=== PATIENT | male | born 1990 | race Native Hawaiian/Other Pacific Islander ===

== ENCOUNTER 2016-11-18 23:20 | Inpatient (IN) | payer OTHER ==
--- NOTE | 2016-11-19 00:25 | ED PDOC ---
Arrival/HPI <Christopher Harris - Last Filed: 11/19/16 01:39> - History of Present Illness Time/Duration: Prior to Arrival Symptom Onset: Gradual Symptom Course: Worsening <LACEY DE LEÓN - Last Filed: 11/19/16 05:28> - General Chief Complaint: Abdominal Pain Time Seen by Provider: 11/18/16 23:56 - History of Present Illness Narrative History of Present Illness (Text): Patient is a 26 year old male with PMH hemorrhoids and exercise induced asthma who presents to [facility] on 11/18/16 with complaints of abdominal pain associated with bloody stools, nausea, shortness of breath, and generalized weakness. Patient states that his symptoms started two months ago. At the time his symptoms first developed, patient states he was socially drinking often and decided to stop once symptoms started. Patient states that despite refraining from alcohol, his symptoms continued to progress. He states for the past two months he experiences abdominal pain throughout the day which induces him to have bowel movements around 6 times a day, with most BMs containing blood, describing the toilet bowl as bright red after each BM. Patient notes that his bloody BMs are exacerbated when consuming dairy and spicy food. Patient denies diarrhea and constipation, stating that his bowel movements tend to be soft. He also noticed that as time progressed, he becomes increasingly short of breath at shorter distances. He admits to weakness, and states that he is becoming pale as well. Last bowel movement was 2 hours prior to being admitted, BM contained blood. Patient denies headache, chest pain, headache, vomiting, denies recent intl travel. 11/19/16 00:25 11/19/16 00:42 11/19/16 03:31 (LACEY DE LEÓN) Past Medical History <Christopher Harris - Last Filed: 11/19/16 01:39> - Provider Review Nursing Documentation Reviewed: Yes - Travel History Have you recently traveled outside [place] w/in the past 3 mons?: No - Infectious Disease Hx of Infectious Diseases: None - Cardiac Hx Cardiac Disorders: No Hx Angina: No Hx Atrial Fibrillation: No Hx Coronary Artery Disease: No Hx Cardiac Arrhythmia: No Hx Circulatory Problems: No Hx Congestive Heart Failure: No Hx MA: No Hx Heart Murmur: No Hx Heart Transplant: No Hx Hyperlipemia: No Hx Hypertension: No Hx Hypotension: No Hx Internal Defibrillator: No Hx Mitral Valve Prolapse: No Hx Pacemaker: No Hx Peripheral Edema: No Hx Peripheral Vascular Disease: No - Pulmonary Hx Respiratory Disorders: No Hx Asthma: Yes Hx Bronchitis: No Hx Chronic Obstructive Pulmonary Disease (COPD): No Hx Emphysema: No Hx Lung Cancer: No Hx Pneumonia: No Hx Pulmonary Edema: No Hx Pulmonary Embolism: No Hx Respiratory Aspiration: No Hx Respiratory Tract Infection: No Hx Sleep Apnea: No Hx Tuberculosis: No - Neurological Hx Neurological Disorder: No Hx Alzheimer's Disease: No HX Cerebrovascular Accident: No Hx Dementia: No Hx Dizziness: No Hx Headaches: No Hx Meningitis: No Hx Migraine: No Hx Multiple Sclerosis: No Hx Paralysis: No Hx Parkinson's Disease: No Hx Seizures: No Hx Syncope: No Hx Transient Ischemic Attacks (TIA): No Hx Vertigo: No - HEENT Hx HEENT Disorder: No Hx Blind: No Hx Cataracts: No Hx Deafness: No Hx Difficulty Chewing: No Hx Epistaxis: No Hx Glaucoma: No Hx Macular Degeneration: No Hx Sinusitis: No - Renal Hx Renal Disorder: No Hx Dialysis: No Hx Kidney Stones: No Hx Neurogenic Bladder: No Hx Pyelonephritis: No Hx Renal Cancer: No Hx Renal Failure: No - Endocrine/Metabolic Hx Endocrine Disorders: No Hx Adrenal Cancer: No Hx Diabetes Insipidus: No Hx Diabetes Mellitus Type 1: No Hx Diabetes Mellitus Type 2: No Hx Hyperthyroidism: No Hx Hypothyroidism: No Hx Systemic Lupus Erythematosus: No - Hematological/Oncological Hx Blood Disorders: No Hx AIDS: No Hx Anemia: No Hx Blood Transfusions: No Hx Blood Transfusion Reaction: No Hx Bruising: No Hx Cancer: No Hx Chemotherapy: No Hx Cirrhosis: No Hx Gum Bleeding: No Hx Hemophilia: No Hx Hepatitis A: No Hx Hepatitis B: No Hx Hepatitis C: No Hx HIV: No Hx Leukemia: No Hx Lymphoma: No Hx Metastasis: No Hx Shingles: No Hx Sickle Cell Trait: No Hx Sickle Cell Disease: No Hx Unexplained Bleeding: No Hx von Willebrand's Disease: No - Integumentary Hx Dermatological Disorder: No Hx Basal Cell Carcinoma: No Hx Martinez: No Hx Cellulitis: No Hx Eczema: No Hx Melanoma: No Hx Psoriasis: No Hx Squamous Cell Carcinoma: No - Musculoskeletal/Rheumatological Hx Musculoskeletal Disorders: No Hx Arthritis: No Hx Back Pain: No Hx Degenerative Joint Disease: No Hx Falls: No Hx Fractures: No Hx Gout: No Hx Herniated Disk: No Hx Myasthenia Gravis: No Hx Osteoarthritis: No Hx Osteomyelitis: No Hx Osteoporosis: No Hx Rhabdomyolysis: No Hx Rheumatoid Arthritis: No Hx Spinal Stenosis: No Hx Unsteady Gait: No - Gastrointestinal Hx Gastrointestinal Disorders: No Hx Bowel Surgery: No Hx Clostridium Difficile: No Hx Colitis: No Hx Colostomy: No Hx Constipation: No Hx Crohn's Disease: No Hx Diarrhea: No Hx Diverticulitis: No Hx Esophageal Varices: No Hx Fatty Liver Disease: No Hx Gall Bladder Disease: No Hx Gastritis: No Hx Gastroesophageal Reflux: No Hx Gastrointestinal Ulcer: No Hx Hemorrhoids: No Hx Ileostomy: No Hx Irritable Bowel: No Hx Liver Failure: No Hx Nausea: No Hx Pancreatitis: No HX Swallowing Problems: No Hx Vomiting: No - Genitourinary/Gynecological Hx Genitourinary Disorders: No Hx Bladder Cancer: No Hx Bladder Stone: No Hx Cervical Cancer: No Hx Hematuria: No Hx Incontinence: No Hx Ovarian Cancer: No Hx Postmenopausal Bleeding: No Hx Prostate Cancer: No Hx Prostate Problems: No Hx Reproductive Disorders: No Hx Sexually Transmitted Diseases: No Hx Uterine Cancer: No Hx Urinary Tract Infection: No - Psychiatric Hx Psychophysiologic Disorder: No Hx Anxiety: No Hx Bipolar Disorder: No Hx Depression: No Hx Emotional Abuse: No Hx Hallucinations: No Hx Panic Disorder: No Hx Paranoia: No Hx Post Traumatic Stress Disorder: No Hx Psychosis: No Hx Physical Abuse: No Hx Schizophrenia: No Hx Sexual Abuse: No Hx Substance Use: No - Past Surgical History Past Surgical History: No Previous - Surgical History Hx Abdominal Aortic Aneurysm Repair: No Hx Amputation: No Hx Angiogram: No Hx Angioplasty: No Hx Appendectomy: No Hx Arteriovenous Shunt: No Hx Arthroscopy: No Hx Bile Duct Stent: No Hx Breast Biopsy: No Hx Cataract Extraction: No Hx Cardiac Catheterization: No Hx Carotid Endarterectomy: No Hx Section: No Hx Cholecystectomy: No Hx Coronary Artery Bypass Graft: No Hx Coronary Stent: No Hx Dilation and Curettage: No Hx Eye Surgery: No Hx Femoral-Popliteal Bypass Graft: No Hx Gastric Bypass Surgery: No Hx Hysterectomy: No Hx Inguinal Hernia Repair: No Hx Joint Replacement: No Hx Kidney Transplant: No Hx Liver Transplant: No Hx Mastectomy: No Hx Musculoskeletal Surgery: No Hx Open Heart Surgery: No Hx Open Reduction Internal Fixation: No Hx Orthopedic Surgery: No Hx Parathyroidectomy: No Hx Penile Implant: No Hx Pulmonary Surgery: No Hx Splenectomy: No Hx Thyroidectomy: No Hx Tonsillectomy: No Hx Tubal Ligation: No Hx Valve Replacement: No Hx Vascular Surgery: No Hx Vascular Access Device: No - Anesthesia Hx Anesthesia: No Hx Anesthesia Reactions: No Hx Malignant Hyperthermia: No Has any member of the family had a problem with anesthesia?: No - Suicidal Assessment Suicidal Thoughts: No Plan: No Suicide Risk Precautions: None Feels Threatened In Home Enviroment: No Feels Threatened In a Relationship: No <LACEY DE LEÓN - Last Filed: 11/19/16 05:28> - Patient History Narrative Patient History: Patient admits to bleeding in the past due to hemorrhoids; within past 5 years. (LACEY DE LEÓN) Family/Social History Family/Social History: No Known Family HX Smoking Status: Never Smoked Hx Alcohol Use: No Hx Substance Use: No <LACEY DE LEÓN - Last Filed: 11/19/16 05:28> Allergies/Home Meds <Christopher Harris - Last Filed: 11/19/16 01:39> <LACEY DE LEÓN - Last Filed: 11/19/16 05:28> Allergies/Adverse Reactions: Allergies No Known Allergies Allergy (Verified 11/18/16 23:40) Home Medications: Home Meds Medication Instructions Recorded Confirmed No Known Home Med 11/18/16 11/18/16 Review of Systems - Review of Systems Systems not reviewed;Unavailable: Acuity of Condition Constitutional: Normal Eyes: Normal ENT: Normal Respiratory: Normal Cardiovascular: Normal Gastrointestinal: Normal Genitourinary Male: Normal Musculoskeletal: Normal Skin: Normal Neurological: Normal Endocrine: Normal Hemo/Lymphatic: Normal Psychiatric: Normal <LACEY DE LEÓN - Last Filed: 11/19/16 05:28> Physical Exam Vital Signs Reviewed: Yes Temperature: Afebrile Blood Pressure: Normal Pulse: Regular Respiratory Rate: Normal Appearance: Positive for: Ill-Appearing Pain Distress: None Mental Status: Positive for: Alert and Oriented X 3 - Systems Exam Head: Present: Atraumatic, Normocephalic Extroacular Muscles: Present: EOMI Conjunctiva: Present: Other (pallor) Mouth: Present: Moist Mucous Membranes, Other (pale oral mucosa) Neck: Present: Normal Range of Motion Cardiovascular: Present: Regular Rate and Rhythm, Normal S1, S2 Abdomen: Present: Normal Bowel Sounds. No: Tenderness, Distention <LACEY DE LEÓN - Last Filed: 11/19/16 05:28> Vital Signs Temp Pulse Resp BP Pulse Ox 11/19/16 02:40 99.0 F 97 H 18 133/67 100 11/18/16 23:32 98.1 F 110 H 20 146/78 100 Medical Decision Making - Lab Interpretations I have reviewed the lab results: Yes <Christopher Harris - Last Filed: 11/19/16 01:39> <LACEY DE LEÓN - Last Filed: 11/19/16 05:28> ED Course and Treatment: Impression: Pt seen and evaluated with pesticide use medical coordinator. Pt, whose past medical history includes hemorrhoids and asthma, presented for bright red hematochezia, nausea, generalized weakness, and shortness of breath gradually woresening over 2 months. Pt also reports associated abdominal pain. Aware and agree with HPI, clinical findings, plan, and management. Plan: -- CT Abdomen and Pelvis w/o contrast -- EKG -- Chest X-ray/XR Abdomen -- Labs, blood type and screen -- Reassess and disposition Progress Notes: 11/19/16 01:14 Labs reviewed, hemoglobin: 5.8, hemtocrit 22.2. Will transfuse pt. 11/19/16 01:[address] Maldonado, who is aware and agrees with plan. Accepts pt in to his service. (Christopher Harris) [age] year old patient with c/o abdominal pain, hematochezia, shortness of breath , weakness found to be anemic -H&H 5.8, 22.2; typed and crossed, transfused 2 units PRBCs -Will admit to medical floor for further evaluation -EKG ordered; sinus tachycardia -NPO 11/19/16 01:27 (LACEY DE LEÓN) - Lab Interpretations Lab Results: 11/19/16 00:16 11/19/16 00:16 Lab Results 11/19/16 01:45: Blood Type Confirm AB POSITIVE 11/19/16 00:16: Retic Count 2.09 H 11/19/16 00:16: Blood Type AB POSITIVE, Antibody Screen Negative, Crossmatch See Detail, BBK History Checked No verified bt 11/19/16 00:16: PT 10.1, INR 0.94, APTT 24.9 11/19/16 00:16: Sodium 138, Potassium 3.7, Chloride 102, Carbon Dioxide 26, Anion Gap 14, BUN 7, Creatinine 0.8, Est GFR ( Amer) > 60, Est GFR (Non- Af Amer) > 60, Random Glucose 188 H, Calcium 8.8, Ferritin Pending, Total Bilirubin 0.6, AST 27, ALT 23, Alkaline Phosphatase 52, Total Protein 7.2, Albumin 3.9, Globulin 3.4, Albumin/Globulin Ratio 1.1 11/19/16 00:16: WBC 6.9, RBC 3.61, Hgb 5.8 L*, Hct 22.2 L, MCV 61.5 L, MCH 16.1 L, MCHC 26.1 L, RDW 17.6 H, Plt Count 464 H, MPV 8.5, Gran % 60.3, Lymph % (Auto ) 26.8, Banks % (Auto) 9.4 H, Eos % (Auto) 2.9, Baso % (Auto) 0.6, Gran # 4.19, Lymph # 1.9, Banks # 0.7 H, Eos # 0.2, Baso # 0.04 - RAD Interpretation Radiology Orders: 11/19/16 00:00 CXR [CHEST PORTABLE] [RAD] Stat 11/19/16 00:03 ABDOMEN (FLAT PLATE) 1VIEW [RAD] Stat 11/19/16 01:19 ABD & PELVIS W/O PO OR IV CONT [CT] Stat - Medication Orders Current Medication Orders: Acetaminophen (Tylenol 325mg Tab) 650 mg PO Q6H PRN PRN Reason: Fever >100.4 F Famotidine (Pepcid) 20 mg IVP Q12 SARAH Sodium Chloride (Sodium Chloride 0.9%) 1,000 mls @ 100 mls/hr IV .Q10H STA Stop: 11/19/16 11:55 Last Admin: 11/19/16 02:04 Dose: 100 mls/hr Pantoprazole Sodium (Protonix 40mg Ivpb) 40 mg in 100 mls @ 20 mls/hr IVPB .Q5H SARAH Last Admin: 11/19/16 04:49 Dose: 20 mls/hr Discontinued Medications Oxycodone/Acetaminophen (Percocet 5/325 Mg Tab) 1 tab PO Q4H PRN PRN Reason: Pain, moderate (4-7) Stop: 11/22/16 01:57 Pantoprazole Sodium (Protonix Inj) 40 mg IVP STAT STA Stop: 11/19/16 01:02 Last Admin: 11/19/16 01:34 Dose: 40 mg Disposition/Present on Arrival <Christopher Harris - Last Filed: 11/19/16 01:39> - Present on Arrival Any Indicators Present on Arrival: No History of DVT/PE: No History of Uncontrolled Diabetes: No Urinary Catheter: No History of Decub. Ulcer: No History Surgical Site Infection Following: None - Disposition Have Diagnosis and Disposition been Completed?: Yes Disposition Time: 02:00 Patient Plan: Admission <LACEY DE LEÓN - Last Filed: 11/19/16 05:28> - Disposition Diagnosis: Gastrointestinal bleed Disposition: HOSPITALIZED Patient Problems: Current Active Problems Problem Status Onset Gastrointestinal bleed Acute Condition: CRITICAL
[2016-11-19 00:52] LABS: BASO # 0.04 K/mm3 (0.0-2.0); BASO % 0.6 % (0.0-3.0); EOS # 0.2 (0.0-0.7); EOS % 2.9 % (1.5-5.0); GRAN # 4.19 (1.4-6.5); GRAN % 60.3 % (50.0-68.0); LYMPH # 1.9 (1.2-3.4); LYMPH % 26.8 % (22.0-35.0); MEAN CELL VOLUME 61.5 fl (80.0-105.0); MEAN CORPUSCULAR HEMOGLOBIN 16.1 pg (25.0-35.0); MEAN CORPUSCULAR HGB CONC 26.1 g/dl (31.0-37.0); MEAN PLATELET VOLUME 8.5 fl (7.0-11.0); MONO # 0.7 (0.1-0.6); MONO % 9.4 % (1.0-6.0); WHITE BLOOD COUNT 6.9 10^3/ul (4.5-11.0)
[2016-11-19 00:55] LABS: HEMATOCRIT 22.2 % (42.0-52.0)
[2016-11-19 00:58] LABS: INR 0.94 (0.93-1.08); PARTIAL THROMBOPLASTIN TIME 24.9 Seconds (23.7-30.8)
[2016-11-19 01:02] LABS: ALB/GLOB RATIO 1.1 (1.1-1.8); ALKALINE PHOSPHATASE 52 U/L (38-133); ALT/SGPT 23 U/L (7-56); AST/SGOT 27 U/L (15-59); BILIRUBIN,TOTAL 0.6 mg/dL (0.2-1.3); BLOOD UREA NITROGEN 7 mg/dL (7-21); CALCIUM 8.8 mg/dL (8.4-10.5); CARBON DIOXIDE 26 mmol/L (21-33); CHLORIDE 102 mmol/L (98-107); GFR AFRICAN-AMERICAN > 60; GLUCOSE,RANDOM 188 mg/dL (70-110); POTASSIUM 3.7 mmol/L (3.6-5.0); SODIUM 138 mmol/L (132-148); TOTAL PROTEIN 7.2 g/dL (5.8-8.3)
[2016-11-19 01:29] LABS: RED CELL DISTRIBUTION WIDTH 17.6 % (11.5-14.5)
[2016-11-19] MEDS ORDERED: Sodium Chloride 0.9% 1,000 ML IV STA (01:56)
[2016-11-19] MEDS ORDERED: Oxycodone/Acetaminophen 5/325 mg Tab PO PRN (01:56)
--- NOTE | 2016-11-19 02:09 | CT ---
EXAM: CT Abdomen and Pelvis Without Intravenous Contrast CLINICAL HISTORY: 26 years old, male; Pain; Abdominal pain; Generalized; Additional info: Abd pain TECHNIQUE: Axial computed tomography images of the abdomen and pelvis without intravenous contrast. All CT scans at this facility use one or more dose reduction techniques, viz.: automated exposure control; ma/kV adjustment per patient size (including targeted exams where dose is matched to indication; i.e. head); or iterative reconstruction technique. Coronal and sagittal reformatted images were created and reviewed. COMPARISON: No relevant prior studies available. FINDINGS: Limitations: Lack of intravenous contrast. Lower thorax: No acute findings. ABDOMEN: Liver: Fatty infiltration. Gallbladder and bile ducts: No calcified stones. No ductal dilation. Pancreas: Unremarkable. No ductal dilation. Spleen: No splenomegaly. Adrenals: No mass. Kidneys and ureters: No renal calculi. No hydronephrosis. Stomach and bowel: Mild fatty infiltration wall of distal small bowel loops. Mild mural thickening of descending, sigmoid colon. No associated inflammatory stranding. No obstruction. Appendix: Normal caliber. No inflammation. PELVIS: Bladder: Unremarkable. No stones. Reproductive: Unremarkable as visualized. ABDOMEN and PELVIS: Intraperitoneal space: No significant fluid collection. No free air. Bones/joints: No acute fracture. Soft tissues: Unremarkable. Vasculature: Unremarkable. No aneurysm. Lymph nodes: Several subcentimeter short axis mesenteric lymph nodes, nonspecific. IMPRESSION: 1. Probable mild colitis. Consider inflammatory or infectious etiologies. 2. Incidental/non-acute findings are described above.
--- NOTE | 2016-11-19 04:33 | CP.PCM.PN ---
Subjective - Date & Time of Evaluation Date of Evaluation: 11/19/16 Time of Evaluation: 04:31 - Subjective Subjective: Patient was seen at bedside. discussed with and nurse Kenisha. Spoke to as per whom he did not speak to nor . Patient is hemodynamically stable. This 26 year old obese person was admitted with 2 months history of black stools. Has PMH of obesity, alcohol abuse, ashtma, hemorrhoids. Objective - Vital Signs/Intake and Output Vital Signs (last 24 hours): Temp Pulse Resp BP Pulse Ox 97.8 F 98 H 20 114/68 100 11/19/16 03:55 11/19/16 04:10 11/19/16 03:55 11/19/16 04:10 11/19/16 02:40 Intake and Output: 11/18/16 11/19/16 18:59 06:59 Intake Total 0 Balance 0 - Medications Medications: Current Medications Acetaminophen (Tylenol 325mg Tab) 650 mg PO Q6H PRN PRN Reason: Fever >100.4 F Famotidine (Pepcid) 20 mg IVP Q12 SARAH Sodium Chloride (Sodium Chloride 0.9%) 1,000 mls @ 100 mls/hr IV .Q10H STA Stop: 11/19/16 11:55 Last Admin: 11/19/16 02:04 Dose: 100 mls/hr Pantoprazole Sodium (Protonix 40mg Ivpb) 40 mg in 100 mls @ 20 mls/hr IVPB .Q5H SARAH - Labs Labs: PT 10.1 Seconds (9.9-11.8) 11/19/16 00:16 INR 0.94 (0.93-1.08) 11/19/16 00:16 APTT 24.9 Seconds (23.7-30.8) 11/19/16 00:16 - Constitutional Appears: Well, No Acute Distress - Head Exam Head Exam: ATRAUMATIC, NORMAL INSPECTION, NORMOCEPHALIC - Eye Exam Eye Exam: Normal appearance - ENT Exam ENT Exam: Normal External Ear Exam - Neck Exam Neck Exam: Normal Inspection - Respiratory Exam Respiratory Exam: NORMAL BREATHING PATTERN - Cardiovascular Exam Cardiovascular Exam: absent: JVD - GI/Abdominal Exam GI & Abdominal Exam: absent: Distended - Rectal Exam Rectal Exam: Deferred - Exam Additional comments: Deferred. - Extremities Exam Extremities Exam: Normal Inspection - Back Exam Back Exam: NORMAL INSPECTION - Neurological Exam Neurological Exam: Alert, Oriented x3 - Psychiatric Exam Psychiatric exam: Normal Affect, Normal Mood - Skin Skin Exam: Pallor Assessment and Plan - Assessment and Plan (Free Text) Assessment: GI bleeding. Obesity. Asthma. Alcohol abuse. Hx hemorrhoids. Plan: If continue to have rectal bleeding, and unstable will get heating and cooling technician evaluation to transfer to ICU. 05:37 Pt seen , weakness, fatigue, epigastric, pain. for sigmoidoscopy, EGD this am by .
[2016-11-19] MEDS: Pantoprazole 40mg/100ml IVPB 40 MG/100 ML BAG IVPB SCH ×4 (04:49→20:50)
[2016-11-19 05:06] LABS: RETIC% 2.09 % (0.5-1.5)
[2016-11-19 06:11] LABS: IRON < 10 ug/dL (45-180)
[2016-11-19] MEDS ORDERED: Sodium Chloride 0.45% 1,000 ML IV SCH (08:00)
--- NOTE | 2016-11-19 08:08 | CON ---
DATE: 11/19/2016 HISTORY OF PRESENT ILLNESS: I saw the patient this morning. He is a 26-year-old male admitted with complaints of abdominal pain with diarrhea extending back over 2 months. He indicated that the initial episodes started after 1 week of constant partying, excessive drinking about month and a half to 2 months ago. He indicates that pain is located primarily in the epigastric area, left upper quadrant, may occur after food. Diarrhea usually occurs within minutes after intake of either liquids or solids. May have up to 10 to 12 bowel movements a day, most have some degree of oil. Bowel movements he described as dark with some bright red blood. He has noted brown stool as well with blood mixed in. There has been nausea at times. Main complaint now is nausea with shortness of breath, generalized weakness. He has not had any endoscopic evaluation for this. PHYSICAL EXAMINATION: VITAL SIGNS: I reviewed this patient's vital signs. HEENT EXAM: Noncontributory except for dry mouth. LUNGS: Clear to auscultation. HEART: Regular rhythm. ABDOMEN: Soft. Mild tenderness in the epigastric area, left upper quadrant. Remainder of the exam in the area of the right lower, right upper quadrant, the left paraumbilical, periumbilical as well as the deep left lower quadrant is noncontributory. LABORATORY DATA: Indicate H and H of 5.0/22 and platelet count of 464. His INR is within normal limits. Chemistry is noncontributory except for mildly elevated glucose. CAT scan images were reviewed which indicates substantial amount of hepatic steatosis; biliary tract, noncontributory. There was some thickening noted in the wall of the descending as well as sigmoid colon, but no gross evidence of diverticulitis. ASSESSMENT: This is a 26-year-old male admitted with complaints of abdominal pain, diarrhea, nausea, fatigue, weakness, going on for 2 months, presents with severe anemia. I reviewed the risks, benefits, alternatives of possible upper endoscopy and flexible sigmoidoscopy with this patient. Due to his symptoms of nausea as well as abdominal pain and diarrhea, we will elect to perform an endoscopy and only a flexible sigmoidoscopy today. obviously he will need a colonoscopy on the outpatient basis. The procedure will be scheduled for sometime later on this morning, 11:30 or after. At the current time point maintain the patient on pantoprazole infusion and he is currently being transfused. I reviewed the procedure with the patient at the bedside, will obtain consent later. Issue discussed with Dr Maldonado. Jaycob Gay DO, PhD СВЕТЛАНА
--- NOTE | 2016-11-19 08:50 | RAD ---
HISTORY: abdominal pain COMPARISON: No prior. FINDINGS: BOWEL: Normal. No obstruction. No free air. BONES: Normal. OTHER FINDINGS: None. IMPRESSION: No active disease.
--- NOTE | 2016-11-19 08:51 | RAD ---
HISTORY: Wheezing, shortness of breath COMPARISON: No prior. FINDINGS: LUNGS: No active pulmonary disease. PLEURA: No significant pleural effusion identified, no pneumothorax apparent. CARDIOVASCULAR: Normal. OSSEOUS STRUCTURES: No significant abnormalities. VISUALIZED UPPER ABDOMEN: Normal. OTHER FINDINGS: None. IMPRESSION: No active disease.
[2016-11-19] MEDS: metroNIDAZOLE IV 500 mg/100 ml 500 MG/100 ML BAG IVPB SCH ×3 (09:33→21:03)
--- NOTE | 2016-11-19 09:44 | CARD ---
APPROVED REPORT EKG Measurement Heart [id number] IA [id number] <Conclusion> Sinus tachycardia Minimal voltage criteria for LVH, may be normal variant Normal ECG for age
[2016-11-19] MEDS ORDERED: Ciprofloxacin 400mg/200ml D5W 400 MG/200 ML BAG IVPB SCH (10:00)
[2016-11-19 11:43] LABS: HEMATOCRIT 25.9 % (42.0-52.0)
[2016-11-19 11:45] LABS: ALB/GLOB RATIO 1.2 (1.1-1.8); ALKALINE PHOSPHATASE 56 U/L (38-133); ALT/SGPT 29 U/L (7-56); AST/SGOT 36 U/L (15-59); BILIRUBIN,TOTAL 1.5 mg/dL (0.2-1.3); BLOOD UREA NITROGEN 5 mg/dL (7-21); CALCIUM 8.7 mg/dL (8.4-10.5); CARBON DIOXIDE 24 mmol/L (21-33); CHLORIDE 105 mmol/L (98-107); GFR AFRICAN-AMERICAN > 60; GLUCOSE,RANDOM 95 mg/dL (70-110); SODIUM 139 mmol/L (132-148); TOTAL PROTEIN 7.1 g/dL (5.8-8.3)
[2016-11-19] MEDS ORDERED: Propofol 10 mg/ml Inj (20 ML) ONE (12:03)
[2016-11-19] MEDS ORDERED: Midazolam 2 MG/2 ML VIAL ONE (12:04)
[2016-11-19] MEDS: Sodium Chloride 0.9% 1,000 ML IV SCH (15:05)
[2016-11-19 18:06] LABS: HEMATOCRIT 27.2 % (42.0-52.0)
--- NOTE | 2016-11-19 18:24 | HP ---
HISTORY OF PRESENT ILLNESS: I saw the patient this morning in his bed, he was resting comfortably, and he has got IV, transfusion is being given to him. He is a 26-year-old man who presents with a 2-month history of black stools, some nauseousness, some shortness of breath, generalized weakness. He is a social drinker. He stopped drinking recently, but he is still having the issues of black stools. He also had bright red blood stools too. He has a history of exercise-induced asthma, hemorrhoids, and symptoms got worse, and he ended up in the emergency room. He has asthma and hemorrhoids. No surgeries. He does have a questionable history of bleeding from hemorrhoids in the past 5 years. FAMILY HISTORY: No known family history. SOCIAL HISTORY: Never smoked, he does drink alcohol, but he stopped about 3 weeks ago and no substance abuse. MEDICATIONS: He takes no medications. ALLERGIES: NO ALLERGIES TO ANY MEDICATIONS. REVIEW OF SYSTEMS: No acute vision changes or hearing changes, no sore throat, or neck pain. No chest pain. He is breathing well right now at rest but does gets shortness of breath too much or gets up too fast. He gets headaches from time to time. No abdominal pain at this time. He does get abdominal cramping. He has had blood in stool. He had black stools. He does have hemorrhoids. His legs are okay. Not nervous, not anxious, not sweating. PHYSICAL EXAMINATION: VITAL SIGNS: He has 99 temp, 110 pulse, 20 respiratory rate, 146/70 blood pressure, 100% O2 sat on room air. GENERAL: He is alert and oriented x3. He is comfortable in bed, little weak, ill-appearing a bit. HEENT: Head is atraumatic and normocephalic. Extraocular muscles are intact. Pupils are equal and reactive to light. Throat is moist. NECK: Supple. HEART: Regular rate. Normal S1 and S2. LUNGS: Decreased breath sounds, but clear to auscultation bilaterally. ABDOMEN: Soft, nontender. Positive bowel sounds. No guarding, no rebound. No CVA tenderness. He is a little bit obese. EXTREMITIES: No edema. SKIN: For the most part is intact. No ulcers or rashes are visualized. LYMPHATICS: Thyroid midline. No palpable or appreciable lymphadenopathy. He had a CAT scan of the abdomen and pelvis which showed probable mild colitis. LABORATORY DATA: He had lab work. He has a 138 sodium, potassium of 3.7, BUN 17, creatinine 0, GFR is greater than 60, sugar is high at 188, calcium is 8.8, iron level is less than 10, total iron binding capacity is quite high at 508. Total bili is 0.6, AST is 27, ALT is 23, alk phos is 52, total protein is 7.2, albumin is 3.9, globulin 3.4, INR is 0.94. White count 6.9 with hemoglobin 5.8, hematocrit 22.2, and platelets of 464. He will have a consult with GI. He will be on IV Protonix, IV Pepcid, IV Cipro, IV Flagyl, IV fluids. Check his labs tomorrow. He is getting transfused. He might need blood transfusions. His H and H is q. 6 hours pending. He is in a bit of trouble and also improved fast, and I will get to the bottom of this and help him. IMPRESSION: Acute anemia, gastrointestinal bleed, colitis, high blood sugar. Joby Maldonado DO СВЕТЛАНА
[2016-11-20] MEDS: Pantoprazole 40mg/100ml IVPB 40 MG/100 ML BAG IVPB SCH ×6 (02:10→20:03)
[2016-11-20] MEDS: Sodium Chloride 0.9% 1,000 ML IV SCH (02:50)
[2016-11-20] MEDS: metroNIDAZOLE IV 500 mg/100 ml 500 MG/100 ML BAG IVPB SCH ×3 (05:04→23:41)
[2016-11-20 07:07] LABS: HEMATOCRIT 28.9 % (42.0-52.0); MEAN CELL VOLUME 67.8 fl (80.0-105.0); MEAN CORPUSCULAR HEMOGLOBIN 19.5 pg (25.0-35.0); MEAN CORPUSCULAR HGB CONC 28.7 g/dl (31.0-37.0); MEAN PLATELET VOLUME 8.7 fl (7.0-11.0); RED CELL DISTRIBUTION WIDTH 22.7 % (11.5-14.5); WHITE BLOOD COUNT 4.8 10^3/ul (4.5-11.0)
[2016-11-20 07:25] LABS: ALB/GLOB RATIO 1.2 (1.1-1.8); ALKALINE PHOSPHATASE 52 U/L (38-126); ALT/SGPT 31 U/L (7-56); AST/SGOT 49 U/L (17-59); BILIRUBIN,TOTAL 1.5 mg/dL (0.2-1.3); BLOOD UREA NITROGEN 6 mg/dL (7-21); CALCIUM 8.8 mg/dL (8.4-10.5); CARBON DIOXIDE 26 mmol/L (21-33); CHLORIDE 106 mmol/L (98-107); GFR AFRICAN-AMERICAN > 60; GLUCOSE,RANDOM 101 mg/dL (70-110); POTASSIUM 4.1 mmol/L (3.6-5.0); SODIUM 142 mmol/L (132-148)
[2016-11-20] MEDS: Sodium Chloride 0.45% 1,000 ML IV SCH (09:13)
--- NOTE | 2016-11-20 10:18 | PN ---
DATE: SUBJECTIVE: I known Brant fairly well. He is comfortable now in bed. No more blood. He is hungry. He is on liquid diet. Tomorrow, he will go to soft. He is also not seeing anymore blood, which is good or dark stools. GI is appreciated. PHYSICAL EXAMINATION VITAL SIGNS: He has got 98.4 temperature, 85 pulse, 120/62 blood pressure, 20 respiratory rate, 99% O2 on room air. HEENT: Head is atraumatic, normocephalic. Throat is moist. NECK: Supple. HEART: Regular rate. LUNGS: Decreased breath sounds, but clear. ABDOMEN: Soft, moderately obese, nontender, positive bowel sounds. EXTREMITIES: No edema. MEDICATIONS: He is currently on iron, Flagyl, Pepcid, Protonix; IV fluids, they changed from 0.9 at 100 to 0.5 at 40. He is on Solu-Cortef 100 mg IV b.i.d. and Tylenol. He is off the Cipro. He is also going to get two more units of packed red blood cells today. LABORATORY DATA: He has 142 sodium, potassium 4.1, BUN of 6, creatinine 0.9. GFR is greater than 60. Sugar is down to 101, better, but he is on steroids, we will see what happens. Calcium 8.8. His iron is low, I will start him on iron. Total bilirubin is 1.5, AST is 49, ALT is 31, alkaline phosphatase is 32, total protein 7, albumin is 3.8, globulin 3.2. His INR was 0.94. His white count is 4.8, his hemoglobin after 4 units of blood went from 5.8 to 8.3. I will give him 2 more units of blood today. I would like him to get over 10. Hematocrit is 28.9, platelets of 408. ASSESSMENT AND PLAN: He is being seen by GI. He has an endoscopy, upper and lower flexible sigmoidoscopy. He has got ulcerative colitis, anemia, GI bleed. He had one high blood sugar and I would like to give him 2 more units of blood. Hopefully, tomorrow, if he does well and eats well tomorrow morning, we can discharge him. Joby Maldonado DO [facility] # [id number]
--- NOTE | 2016-11-20 12:33 | PN ---
DATE: 11/20/2016 SUBJECTIVE: I examined Mr. Dean this morning. He is a 26-year-old [place] male admitted with complaints of 2 months' diarrhea, anemia, abdominal pain, and rectal bleeding. Endoscopic evaluation yesterday significant for antral erosions, hiatal hernia, esophagitis, but more significantly what appeared to be ulcerative colitis of the descending colon sigmoid involving the rectum as well. The patient was initiated on high dose IV steroids yesterday with good results. There is no nausea and no abdominal pain. No rectal bleeding or diarrhea. The patient tolerated the small volumes of clear liquid without difficulty yesterday. We suggest one more day of high dose IV steroids followed by outpatient therapy. At bedside this morning, the patient feels significantly improved, more energy, received another 2 units after coming back from endoscopy yesterday. PHYSICAL EXAMINATION VITAL SIGNS: The patient's vital signs were reviewed. HEENT: Noncontributory. LUNGS: Clear to auscultation. HEART: Regular rhythm. ABDOMEN: Soft, doughy, and no tenderness elicited. Note, there is no fullness noted in the area of the left paraumbilical and the left lower quadrant. LABORATORY DATA: As of yesterday 1800 hours last night indicated H and H with 7.6 and 27. We anticipate with the 2 units of blood, his hemoglobin should be up there in the range of 9 or so. His transfusion requirement should be sufficient at that level for him to recover. ASSESSMENT AND PLAN: This is a 26-year-old [place] male with a new diagnosis of segmental left-sided colitis involving the descending colon, sigmoid and rectum. The patient is currently on intravenous steroids and seems to be doing well. Plan of action would be give him another day of IV steroids. Today, I decreased to 100 mg b.i.d. which the patient will continue through tomorrow and subsequently if discharged, will be on a prednisone taper regimen, during which time, he will start oral mesalamine therapy for ulcerative colitis. Biopsy result is pending; however, diagnosis seems to be reasonable based on endoscopic appearance. At the patient's requests since he has done well on clear liquids, we will advance diet to full liquids today. Dr. Maldonado will evaluate the patient today. Note that, I discussed this case with Dr. Joel borjas yesterday as well as the patient's mother. Jaycob Gay DO, MTDKyle
[2016-11-21] MEDS: Pantoprazole 40mg/100ml IVPB 40 MG/100 ML BAG IVPB SCH ×4 (01:49→11:07)
[2016-11-21 06:04] LABS: ALB/GLOB RATIO 1.1 (1.1-1.8); ALKALINE PHOSPHATASE 56 U/L (38-126); ALT/SGPT 31 U/L (7-56); AST/SGOT 40 U/L (17-59); BILIRUBIN,TOTAL 1.5 mg/dL (0.2-1.3); BLOOD UREA NITROGEN 9 mg/dL (7-21); CALCIUM 9.2 mg/dL (8.4-10.5); CARBON DIOXIDE 27 mmol/L (21-33); CHLORIDE 104 mmol/L (98-107); GFR AFRICAN-AMERICAN > 60; GLUCOSE,RANDOM 88 mg/dL (70-110); SODIUM 143 mmol/L (132-148); TOTAL PROTEIN 7.4 g/dL (5.8-8.3)
[2016-11-21 06:13] LABS: POTASSIUM 3.4 mmol/L (3.6-5.0)
[2016-11-21 06:19] LABS: HEMATOCRIT 34.3 % (42.0-52.0); MEAN CELL VOLUME 69.7 fl (80.0-105.0); MEAN CORPUSCULAR HEMOGLOBIN 20.5 pg (25.0-35.0); MEAN CORPUSCULAR HGB CONC 29.4 g/dl (31.0-37.0); MEAN PLATELET VOLUME 8.7 fl (7.0-11.0); RED CELL DISTRIBUTION WIDTH 23.9 % (11.5-14.5); WHITE BLOOD COUNT 6.5 10^3/ul (4.5-11.0)
[2016-11-21 06:48] VITALS: PULSE 60; O2SAT 99
[2016-11-21] MEDS: Sodium Chloride 0.45% 1,000 ML IV SCH (09:20)
[2016-11-21] MEDS ORDERED: Potassium Chloride 20 mEq ER Tab PO STA (11:57)
--- NOTE | 2016-11-21 14:15 | PN ---
DATE: 11/21/2016 SUBJECTIVE: I examined the patient this morning. He is a 26-year-old male admitted with symptoms of acute colitis with rectal bleeding, nausea, vomiting, abdominal pain, and diarrhea. The patient is tolerating very well current therapeutic regimen, which consisted initially of high dose steroids. Yesterday, he received repeat dose of hydrocortisone. Note that his endoscopy is suggestive of acute ulcerative colitis involving the descending colon and sigmoid and rectum. The patient handled clear and full liquid diet. No problems yesterday. PHYSICAL EXAMINATION: VITAL SIGNS: The patient's vital signs were reviewed. HEENT: Noncontributory. LUNGS: Clear to auscultation. HEART: Regular rhythm. ABDOMEN: Soft. No tenderness elicited in any quadrant. LABORATORY DATA: Reviewed this patient's laboratory data with H and H of 8.3/28.9. The patient apparently had a couple of more units of blood yesterday, therefore, theoretically the count should be above hemoglobin of 9. ASSESSMENT AND PLAN: This is a 26-year-old [place] male admitted with signs and symptoms of colitis involving the descending colon and sigmoid. The biopsy results are still pending from the path lab, however, the patient was started on medication for ulcerative colitis in the form of high dose IV steroids in the hospital. The plan for today will be for him to receive his IV steroids in the morning and early afternoon and be discharged by Dr. Maldonado later. He will initiate an oral prednisone taper starting tomorrow, starting at 35 mg daily, and decrease as directed every 4 to 5 days. Scripts were left in the chart for both prednisone 5 mg tablets as well as Lialda 1.2 g. Lialda will be started at 3 tablets daily. He was advised to make an appointment to see me in the office next week. Note that this patient needs a colonoscopy at a later date to evaluate the area of the right colon and the transverse. The patient's diet will be advanced this morning, all sorts of very small portions of soft and he was advised to follow a soft low residue diet, small portions only until he is well along in his therapy. Jaycob Gay DO, PhD [facility] # [id number] СВЕТЛАНА
[2016-11-21 14:35] VITALS: BP 109/66; RESP 18; TEMP 98.2
--- NOTE | 2016-11-24 08:22 | DS ---
I saw him resting comfortably in bed. He is eating very well. He had pancakes for breakfast. He is feeling well. No bleeding. No black stools. He is going to go home on his iron. I gave him one potassium before he left because his potassium was 2.4. He will have his Protonix. There were steroids given by the food service agent and also medicines for his colitis by the food service agent. PHYSICAL EXAMINATION: VITAL SIGNS: He has 98 temp, 60 pulse, 110/61 blood pressure, 19 respiratory rate, 99% sat on room air. HEENT: Head is atraumatic and normocephalic. HEART: Regular rate. LUNGS: Decreased breath sounds, but clear. ABDOMEN: Morbidly obese, soft, nontender, positive bowel sounds. No guarding. No rebound. EXTREMITIES: No edema. MEDICATIONS: He has 143 sodium; potassium is 3.4, I gave him potassium 20 mEq before he leaves; BUN 9; creatinine 1; GFR is greater than 60; sugar is 88; calcium is 9.2. Total bili is 1.5, AST is 40, ALT is 31, alk phos 66. Total protein is 7.4, albumin is 3.9, globulin is 3.5. TSH is 1.14. He had a 6.5 white count after 4 units of blood. He was transfused when 5.8, now he is up to 10.1, which is where I want him; hematocrit 34.3; platelets of 387. His INR is 0.94. He was being seen by gastroenterology. He is going to follow up with Dr. Maldonado and Dr. Gay in the next week. I gave him a note to go back to work on 11/25/2016. He will call me if anything changes. Joby Maldonado DO
== END 2016-11-21 14:37 | disposition home or self-care (01) | DRG 386 ==
LOC: ED 23:20 → ERH 11-19 01:48 → 2RSO 11-19 03:08
PROVIDERS: ADMIT Family Medicine; ATTEND Family Medicine
PROC: 30233N1 Transfusion of Nonautologous Red Blood Cells into Peripheral Vein, Percutaneous Approach (ICD-10-PCS; 2016-11-19)
PROC: 0DBP8ZX Excision of Rectum, Via Natural or Artificial Opening Endoscopic, Diagnostic (ICD-10-PCS; principal; 2016-11-19 11:30)
PROC: 0DBN8ZX Excision of Sigmoid Colon, Via Natural or Artificial Opening Endoscopic, Diagnostic (ICD-10-PCS; 2016-11-19 11:30)
DX: K51.511 Left sided colitis with rectal bleeding (principal); D62 Acute posthemorrhagic anemia; K64.9 Unspecified hemorrhoids; J45.990 Exercise induced bronchospasm; R73.9 Hyperglycemia, unspecified